=== PATIENT | female | born 1980 | race Two or more races ===

== ENCOUNTER → 2017-11-22 | Outpatient (CLI) | payer OTHER ==
[~2017-11-22] VITALS: Ht 152.4 cm; Wt 104.3 kg
[~2017-11-22] MED LIST: ALBUTEROL17 G1; ALLERGY EYE5 ML OP; AMOX1TAB12 PO; CATAFLAM50 MG; CYTOMEL25 MCG PO; DOXYCYCLINE HY100 MG PO; FLEXERIL10 MG; GILTUSS TR TAB1 EACH PO; ORPH100T PO; OSCAL D 5001 TAB PO; PREMARIN0.45 MG; PREMARIN1.25 MG; PROVERA2.5 MG; SYNTHROID125 MCG PO; SYNTHROID75 MCG; TESSALON PERLE100 MG PO; ULTRACET PO; VOLTAREM 75MG PO; WELLBUTRIN XL300 MG; ZYRTEC10 MG PO
== END | disposition home or self-care (01) ==
LOC: PPHC 12:39
DX: R07.0 Pain in throat (principal)

== ENCOUNTER → 2017-12-10 15:11 | Outpatient (CLI) | payer OTHER ==
[~2017-12-10] VITALS: Ht 152.4 cm; Wt 103.4 kg
== END | disposition home or self-care (01) ==
LOC: PPHC 15:11
DX: R05 Cough (principal); J06.9 Acute upper respiratory infection, unspecified

== ENCOUNTER → 2018-01-14 | Outpatient (CLI) | payer OTHER ==
[~2018-01-14] VITALS: Ht 152.4 cm; Wt 90.7 kg
== END | disposition home or self-care (01) ==
LOC: PPHC 15:48
DX: Z00.8 Encounter for other general examination (principal); M54.2 Cervicalgia; M54.89 Other dorsalgia

== ENCOUNTER → 2018-02-13 | Outpatient (CLI) | payer OTHER | END | disposition home or self-care (01) | LOC: PPHC 11:37 | DX: B34.9 Viral infection, unspecified (principal) ==

== ENCOUNTER 2018-12-19 17:12 | Emergency (ER) | payer OTHER ==
[~2018-12-19] VITALS: Ht 177.8 cm; Wt 103.0 kg
== END 2018-12-19 21:33 | disposition home or self-care (01) ==
LOC: ER 17:12
DX: J20.9 Acute bronchitis, unspecified (principal); J11.1 Influenza due to unidentified influenza virus with other respiratory manifestations; J32.8 Other chronic sinusitis

== ENCOUNTER 2019-01-04 10:38 | Emergency (ER) | payer OTHER ==
[~2019-01-04] VITALS: Ht 177.8 cm; Wt 107.5 kg
[2019-01-04] MEDS ORDERED: TESSALON PERLE100 M1 (10:53)
[2019-01-04] MEDS ORDERED: ALBUTEROL0.63 MG/3 (10:53)
[2019-01-04] MEDS ORDERED: FLONASE16 GM (10:53)
[2019-01-04] MEDS ORDERED: BUDEO.25 (10:53)
[2019-01-04] MEDS ORDERED: LEVAQUIN750 MG (10:54)
== END 2019-01-04 17:48 | disposition home or self-care (01) ==
LOC: ER 10:38
DX: J20.8 Acute bronchitis due to other specified organisms (principal)